=== PATIENT | female | born 1990 | race Caucasian/White ===

== ENCOUNTER → 2018-06-26 13:30 | Outpatient (CLI) | payer OTHER, SELFPAY ==
[2018-06-26 16:02] LABS: Color, Urine Yellow (Yellow); Glucose, Dipstick Normal (Normal); Ketone-Dipstick Negative (Negative); Leukocyte Esterase-Dipstick 25 /ul (Negative); Nitrite-Dipstick Negative (Negative); Occult Blood-Urine Negative /ul (Negative); Protein-Dipstick Negative (Negative); Specific Gravity, Urine 1.025 (1.002-1.030); Urine Bilirubin Dipstick Negative (Negative); Urine Clarity Cloudy (Clear); Urine Urobilinogen 1 mg/dl (Normal)
[2018-06-26 16:14] LABS: Absolute Lymphocyte Count 1.22 X10^3/ul (0.83-4.51); Basophil# 0.01 X10^3/uL; Basophil% 0.1 % (0-1); Eosinophil# 0.02 X10^3/uL; Eosinophils% 0.2 % (0-5); Hemoglobin 13.5 g/dl (12.0-15.0); Lymphocyte # 1.22 X10^3/ul (4.0); Lymphocyte % 13.9 % (19-41); Mean Corp Hgb Conc 33.8 g/gl (32-36); Mean Corpuscular Hgb 29.1 pg (27.0-32.0); Mean Corpuscular Volume 86.2 fL (81-99); Monocyte# 0.49 X10^3/uL; Monocyte% 5.6 % (0-10); Neutrophil # 7.03 X10^3/uL (2.7-7.7); Neutrophil % 80.1 % (47-70); Platelet Count 261 K/mm3 (150-450); RBC Distribution Width CV 13.1 % (11.6-14.6); RBC Distribution Width SD 40.3 fl (35.1-43.9); Red Blood Count 4.64 M/mm3 (4.2-5.4); White Blood Count 8.8 K/mm3 (4.4-11.0)
[2018-06-26 16:19] LABS: Thyroid Stim Hormone (TSH) 1.06 uIU/mL (0.358-3.74)
[2018-06-26 16:44] LABS: POSITIVE COUNT NO; POSITIVE DIFFERENTIAL NO; POSITIVE MORPHOLOGY NO
[2018-06-26 17:00] LABS: HIV - WCH Non-Reactive (Nonreactive); Rubella IgG 83.4 IU/mL
[2018-06-26 17:17] LABS: Chlamydia Trachomatis by PCR Negative (Negative); Neisserai gonorrhoeae by PCR Negative (Negative); Probe Check PASS; Sample Adequacy Control PASS; Specimen Processing Control PASS
[2018-06-27 23:34] LABS: Prenatal RPR NONREACTIVE (NONREACTIVE)
[2018-06-28 16:25] LABS: HEPATITIS B SURFACE AG Negative (Negative); Hep C Antibodies 0.1 s/co ratio (0.0-0.9)
[2018-07-01 14:20] LABS: HPV Reflexed? NOT INDICATED
== END ==
PROVIDERS: Visit Provider Obstetrics & Gynecology
DX: Z34.81 Encounter for supervision of other normal pregnancy, first trimester (principal); Z12.4 Encounter for screening for malignant neoplasm of cervix; Z11.3 Encounter for screening for infections with a predominantly sexual mode of transmission
CPT/HCPCS: 81002; 84443; 85025; 86703; 86762; 86803; 87340; 87491; 87591; 87624; 88175; G0145

== ENCOUNTER 2018-12-20 05:30 | Inpatient (IN) | payer SELFPAY ==
[2018-12-20] VITALS (22 sets, daily range): BP systolic 107–123; BP diastolic 67–82; PULSE 68–99; RESP 14–18; TEMP 36.1–36.6; O2SAT 97–100; BMI 35.1
[2018-12-20] MEDS: Lactated Ringers 1,000 ML 999 ML IV (06:00)
[2018-12-20 06:26] LABS: Absolute Lymphocyte Count 1.75 X10^3/uL (0.83-4.51); Absolute Neutrophil Count 8.5 X10^3/uL (2.0-7.7); Basophil# 0.04 X10^3/uL; Basophil% 0.3 % (0-1); Eosinophils% 0.9 % (0-5); Hematocrit 36.8 % (37-47); Hemoglobin 12.1 g/dL (12.0-15.0); Lymphocyte # 1.75 X10^3/ul (4.0); Lymphocyte % 15.3 % (19-41); Mean Corp Hgb Conc 32.9 g/dL (32-36); Mean Corpuscular Hgb 28.7 pg (27.0-32.0); Mean Corpuscular Volume 87.2 fL (81-99); Mean Platelet Vol. 10.8 fl (6.2-12.0); Monocyte% 8.7 % (0-10); NRBC Flagged by Analyzer 0 % (0-5); Neutrophil # 8.45 X10^3/uL (2.7-7.7); Neutrophil % 73.8 % (47-70); Platelet Count 223 K/mm3 (150-450); RBC Distribution Width CV 13.6 % (11.6-14.6); RBC Distribution Width SD 42.5 fl (35.1-43.9); Red Blood Count 4.22 M/mm3 (4.2-5.4); White Blood Count 11.5 K/mm3 (4.4-11.0)
[2018-12-20] MEDS: Lactated Ringers 1,000 ML 150 ML IV (06:40)
[2018-12-20] MEDS: Sodium Citrate/Citric Acid 30 ML UDC PO (06:40)
[2018-12-20 06:45] LABS: Partial Thromboplast Time 26.9 Seconds (24.1-36.2); Prothrombin Time (Protime)PT. 12.8 SECONDS (11.7-14.9)
--- NOTE | 2018-12-20 07:22 | PCM.OPRPT ---
Delivery Classification: Scheduled Final CARROLL: 01/10/19 Final CARROLL Source: US <20 weeks Gestational age: 37 Weeks and 0 Days doctor who attended delivery (if requested by OB): Presley Pimentel Indications: Prior Classical Description of Procedure: Surgeon: Ernst Soto MD, FACOG Value Stream Manager: SHARI Falcon Anesthesia: Juancarlos Del Toro CRNA Anesthesia: Spinal with Duramorph Pre-op Diagnosis: Prior Section Post-Op Diagnosis: Prior Section And Breech Presentation Procedure: Repeat Low Transverse Cervical Caesarean Section Findings: Viable male infant with Apgars of 5/7/8 in marina breech presentation with clear amniotic fluid and normal three-vessel placenta. Indication: This is a 28-year-old who presents for her third at 37 weeks gestation. care has been uneventful for a prior classical section. The patient has been counseled regarding the risk and indications of this procedure including the possibility of bleeding infection and injury to surrounding structures such as bowel bladder. All questions were answered. Procedure: Patient was taken to the operating room where after spinal anesthesia was placed, the patient was prepped and draped in usual sterile fashion and a Daly catheter was placed. The abdomen was entered through the patient's prior Pfannenstiel incision and peritoneum was entered bluntly. After developing a bladder flap on the lower uterine segment a low transverse incision was made on the uterus and breech was delivered onto the operative field and nose mouth and oropharynx were bulb suctioned. Subsequently a viable [ ] infant was born with Apgars of 5/7/8. The infant was noted to cry move all extremities vigorously on the operative field. The umbilical cord was doubly clamped and ligated and infant handed to the nursery personnel who were present for the delivery. Placenta was delivered and noted to be 3 vessels and normal. Uterus was exteriorized and remaining placental tissue was removed. The uterus was noted to have an incision which extended from the lower left to the right mid upper portion of the uterus including a portion of a prior classical section incision. Some adhesions were taken down bluntly, with scissors and with cautery. The uterus was then closed in 2 layers first with running locked 0 Vicryl suture followed by a second imbricating layer with 0 Vicryl suture. 0 Vicryl suture was then used in a horizontal mattress interrupted fashion to affect final hemostasis of the uterine incision line. Normal fallopian tubes and ovaries were visualized and the uterus was returned to the pelvis. Hemostasis was noted and rectus abdominis muscles were reapproximated in the midline with interrupted Number 0 Vicryl suture in a horizontal mattress fashion. Fascia was closed with running Number 1 PDS Strata fix suture. Subcutaneous tissue was irrigated with copious amounts of saline solution and then closed with running 3-0 Vicryl suture. Skin was closed with 4-0 monocryl suture in a running subcuticular fashion. Steri strips, telfa, and tape were placed across the incision. The patient tolerated the procedure well and was taken to the recovery room in satisfactory condition. Sponge, needle, and instrument counts were all reportedly correct. EBL was less than 500 cc. Ancef 2 gms IV was given prior to the procedure. Baby likely to be transferred to tertiary facility due to needing surfactant for labored breathing. Specimen to Pathology: None Complications: None Amniotic Fluid Description: Clear Placenta Disposition: [facility] Specimen(s) sent to pathology: None Drain: Daly to straight drain Fluids Replaced: Crystalloid Cord Entanglement: None Cord Vessel Description: 3 Vessels Esitmated Blood Loss (ml): 500 cc Infant Gender: Male Pre-op Antibiotic Given: Ancef 2 grams IV x1 Pt instructed on risks of surgery: Bleeding, Infection, Injury to surrounding structure(s) including bowel and bladder Complications: None - Admit VTE Documentation VTE Present on Admission: Yes VTE Mechan Device Prophylaxis: SCD's
--- NOTE | 2018-12-20 07:23 | DCINST_ITS ---
Discharge Diet: No Restrictions Discharge Activity: May not drive while taking narcotic pain medications., May Shower, May Take a Tub Bath May resume sexual activity in: 4-6 weeks Lifting Restrictions: 20 pounds Additional Activity Instructions:: Nothing in the vagina for 4-6 weeks. You may return to work/school in 6 weeks. Call your doctor if your incision/area has: Continuous Slow Oozing, Sudden Increased Bleeding, Increased Pain/ Swelling, Increased Redness, Foul Smelling Discharge Call your doctor if you observe: Fever of 101 or Higher, Inability to urinate, Inability to have a bowel movement, Using more than one pad per hour Additional Instructions: If you experience any of the following, contact your healthcare provider. * Bleeding that soaks a pad every hour for 2 hours * Unrelieved incision or abdominal pain * Swelling, redness, discharge or bleeding from your incision or episiotomy site * Your incision begins to separate * Problems urinating (including inability to urinate or burning while urinating). * Visual changes * Severe headache * Flu-like symptoms * Pain or redness in one of both of your breasts * Pain, warmth, tenderness or swelling in your legs, especially the calf area * Frequent nausea and vomiting * Symptoms of depression or anxiety If you experience any of the following, call 911 or go to the nearest Emergency Room. * Chest pain * Problems breathing * Seizure activity * Partial or complete paralysis of a body part, slurred speech, weakness or drooping of the face, or a sudden inability to walk or hold your balance Allergies/Adverse Reactions: Allergies No Known Allergies Allergy (Verified 12/20/18 06:10) Medications to take at Discharge Docusate Sodium [Colace] 100 mg PO BID PRN PRN #60 cap 12/20/18 Oxycodone [Oxyir] 5 mg PO Q6H PRN PRN 7 Days #20 tab 12/20/18 Prenatabs FA 1 tab PO DAILY 12/20/18 The following prescriptions were given: Docusate Sodium [Colace] 100 mg PO BID PRN PRN #60 cap PRN Reason: Constipation Prescription Printed Oxycodone [Oxyir] 5 mg PO Q6H PRN PRN 7 Days #20 tab PRN Reason: Severe Pain (-02/27) Prescription Printed Follow-Up: Call to make an appointment with your doctor for an incision check in 1-2 weeks. You will also need a 6 week post- follow up appointment. Test results from this visit will be discussed in further detail at your follow- up appointment, if applicable. Please Follow Up With: Ernst Soto MD - [phone] When: Call to make an appointment for an incision check in 2 weeks. Primary Care Physician: Ernst Swain MD [Primary Care Provider] -
[2018-12-20] MEDS: Cefazolin 2 GM in 0.9% Normal Saline 100 ML IV (07:25)
[2018-12-20] MEDS: Oxytocin 30 units/NS 500 ml 30 UNITS/500 ML IV.SOLN 167 UNITS IV (07:43)
[2018-12-20] MEDS: Lactated Ringers 1,000 ML 100 ML IV (09:40)
--- NOTE | 2018-12-20 10:51 | NURSING ---
Initiated pumping with mother at 1000 am , mother was able to express large amounts of colostrum which was labeled and sent with transport team/baby. Mother indicates understanding on use of breast pump and how often to pump.
[2018-12-20] MEDS: Ketorolac 30 MG/ML Syringe IV ×2 (14:42→20:16)
[2018-12-20] MEDS: 0.9% Saline Lock 10 ML Syringe IV ×2 (14:42→20:16)
[2018-12-20] MEDS: Cefazolin 1 GM/50 ML BAG IV (14:42)
[2018-12-21] MEDS: Cefazolin 1 GM/50 ML BAG IV (00:11)
[2018-12-21 00:40] VITALS: BP 107/71; PULSE 96; RESP 18; TEMP 36.1; O2SAT 100
[2018-12-21] MEDS: 0.9% Saline Lock 10 ML Syringe IV ×2 (03:01→08:38)
[2018-12-21] MEDS: Ketorolac 30 MG/ML Syringe IV ×2 (03:02→08:38)
[2018-12-21 03:30] VITALS: BP 108/69; PULSE 78; RESP 18; TEMP 36.1; O2SAT 99
[2018-12-21 05:35] VITALS: PULSE 74; RESP 18; O2SAT 98
[2018-12-21 05:35] LABS: Hematocrit 33.7 % (37-47); Mean Corp Hgb Conc 32.6 g/dL (32-36); Mean Corpuscular Hgb 28.9 pg (27.0-32.0); Mean Corpuscular Volume 88.5 fL (81-99); Mean Platelet Vol. 10.7 fl (6.2-12.0); Platelet Count 244 K/mm3 (150-450); RBC Distribution Width CV 13.9 % (11.6-14.6); RBC Distribution Width SD 44.8 fl (35.1-43.9); Red Blood Count 3.81 M/mm3 (4.2-5.4); White Blood Count 13.6 K/mm3 (4.4-11.0)
[2018-12-21 07:00] VITALS: PULSE 72; RESP 18; O2SAT 98
--- NOTE | 2018-12-21 07:42 | PCM.PN.OB ---
Subjective: Patient without complaints. Tolerating diet well. Minimal vaginal bleeding. Pain well controlled. Wants to be discharged as baby was transported to [facility]. - Physical Exam Vital Signs Temp Pulse Resp BP Pulse Ox 96.9 F L 72 18 108/69 98 12/21/18 03:30 12/21/18 07:00 12/21/18 07:00 12/21/18 03:30 12/21/18 07:00 Oxygen Delivery Method Room Air Weight: 211 lb 3.245 oz Body Mass Index (BMI) 35.1 Intake and Output for Last 24 Hours 12/19/18 12/20/18 12/21/18 23:59 23:59 23:59 Intake Total 3703 / 3703 Output Total 2135 / 2135 Balance 1568 / 1568 Laboratory Tests Past 24 Hrs 12/21/18 05:20 WBC 13.6 H RBC 3.81 L Hgb 11.0 L Hct 33.7 L MCV 88.5 MCH 28.9 MCHC 32.6 RDW Std Deviation 44.8 H RDW Coeff of Jj 13.9 Plt Count 244 MPV 10.7 Wound is clean, dry, intact. Good urine output. Hemoglobin okay. Medical Necessity - Tobacco Use Smoking Status: Never smoker Assessment/Plan Doing well postoperative day #1 status post repeat . Will discharge to home with routine instructions. Follow-up in 2 weeks.
[2018-12-21 10:00] VITALS: BP 116/74; PULSE 76; RESP 16; TEMP 36.3
--- NOTE | 2018-12-21 11:18 | NURSING ---
1000 Discharged to home. States she feels able to go home and to [facility] to see her . Out to car in wheelchair. Denies pain or discomfort.
== END 2018-12-21 09:55 | disposition home or self-care (01) | DRG 788 ==
PROVIDERS: Admitting Provider Obstetrics & Gynecology; Family Provider Family Medicine; PCP Family Medicine; Referring Provider Obstetrics & Gynecology; Visit Provider Obstetrics & Gynecology
PROC: 10D00Z1 Extraction of Products of Conception, Low, Open Approach (ICD-10-PCS; CPT 59514; principal; 2018-12-20 07:15)
DX: O34.212 Maternal care for vertical scar from previous cesarean delivery (principal); O32.1XX0 Maternal care for breech presentation, not applicable or unspecified; Z3A.37 37 weeks gestation of pregnancy; Z37.0 Single live birth
CPT/HCPCS: 85025; 85027; 85610; 85730; 86850; 86900; 99218; J7120; A4216; G0378; J2405